=== PATIENT | female | born 1990 | race Two or more races ===

== ENCOUNTER 2024-03-16 21:55 | Inpatient (IN) | payer MEDICAID, OTHER ==
[~2024-03-16] VITALS: Ht 160 cm; Wt 78.7 kg
[2024-03-16 22:43] LABS: Basophils # (auto) 0 10 ^3/uL (0-0.2); Basophils % (auto) 0.4 % (0.0-2.0); Eosinophils # (auto) 0.1 10 ^3/uL (0-0.8); Eosinophils % (auto) 0.9 % (0.0-7.0); Hemoglobin 13.8 g/dL (12.2-16.2); Lymphocytes # (auto) 2.8 10 ^3/uL (0.4-5.4); Lymphocytes % (auto) 23.5 % (10.0-50.0); Mean Corpuscular Hemoglobin 30.3 pg (28.0-32.0); Mean Corpuscular Hgb Conc. 33.7 g/dL (32.0-36.0); Mean Corpuscular Volume 89.7 fL (80.0-100.0); Monocytes # (auto) 0.5 10 ^3/uL (0-1.3); Monocytes % (auto) 4.5 % (0.0-12.0); Neutrophils # (auto) 8.3 10 ^3/uL (1.6-8.6); Neutrophils % (auto) 70.7 % (37.0-80.0); Platelet Count (auto) 287 10^3/uL (140-450); Red Blood Cells 4.56 10^6/uL (4.0-5.20); White Blood Cell 11.7 10^3/uL (4.4-10.8)
--- NOTE | 2024-03-16 22:43 | ED.PDOC ---
History of Present Illness HPI Comments 33 y/o F, with a Hx of cholecystectomy, tonsillectomy, and EtOH use and a FMHx of DM and HTN, presents with c/o non-radiating, epigastric abdominal pain and distension, today. Patient states on unprovoked onset of persisting symptoms for the past 3 days. Patient comments on pain being pressure-like in quality and occurring whenever coughing or sneezing. Patient also informs that pain, at its worst, being a 10/10 and it, currently, being a mild form of discomfort. Patient denies having any nausea, vomiting, diarrhea, fever, chills, or other associated symptoms or modifiers at this time. 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 all MUSIC PUBLISHER Hx Family History Family History: Reviewed,noncontributory to illness, No family hx of Cancer, No family hx of Heart owen, No family hx ofKidney owen, No family hx of Liver owen, No family hx of Lung owen, No family hx of Stroke, Family hx of DM, Family hx of HTN Social History Smoker: Non-Smoker Alcohol: Occasionally Drugs: Denies Drug Use Lives In: Home Constitutional: denies: chills, diaphoresis, fatigue, fever, malaise, sweats, weakness, others EENTM: denies: blurred vision, double vision, ear bleeding, ear discharge, ear drainage, ear pain, ear ringing, eye pain, eye redness, hearing loss, mouth pain, mouth swelling, nasal discharge, nose bleeding, nose congestion, nose pain, photophobia, tearing, throat pain, throat swelling, voice changes, others Respiratory: denies: cough, hemoptysis, orthopnea, SOB at rest, shortness of breath, SOB with excertion, stridor, wheezing, others Cardiovascular: denies: chest pain, dizzy spells, diaphoresis, Dyspnea on exertion, edema, irregular heart beat, left arm pain, lightheadedness, palpitations, PND, syncope, others Gastrointestinal: reports: abdomen distended, abdominal pain; denies: blood streaked bowels, constipated, diarrhea, dysphagia, difficulty swallowing, hematemesis, melena, nausea, poor appetite, poor fluid intake, rectal bleeding, rectal pain, vomiting, others Genitourinary: denies: abnormal vagina bleeding, burning, dyspareunia, dysuria, flank pain, frequency, hematuria, incontinence, pain, , vagina discharge, urgency, others Neurological: denies: dizziness, fainting, headache, left sided numbness, left sided weakness, numbness, paresthesia, pre-existing deficit, right sided numbness, right sided weakness, seizure, speech problems, tingling, tremors, weakness, others Musculoskeletal: denies: back pain, gout, joint pain, joint swelling, muscle pain, muscle stiffness, neck pain, others Integumetry: denies: bruises, change in color, change in hair/nails, dryness, laceration, lesions, lumps, rash, wounds, others Allergic/Immunocompromised: denies: Difficulty Healing, Frequent Infections, Hives, Itching, others Hematologic/Lymphatic: denies: anemia, blood clots, easy bleeding, easy bruising, swollen glands, others Endocrine: denies: excessive hunger, excessive sweating, excessive thirst, excessive urination, flushing, intolerance to cold, intolerance to heat, unexplained weight gain, unexplained weight loss, others Psychiatric: denies: anxiety, bipolar disorder, depression, hopeless, panic disorder, schizophrenia, sleepless, suicidal, others All Other Systems: Reviewed and Negative Physical Exam General Appearance: Moderate Distress HEENT: Normal ENT Inspection, Pharynx Normal, TMs Normal Neck: Full Range of Motion, Non-Tender, Normal, Normal Inspection Respiratory: Chest Non-Tender, Lungs Clear, No Accessory Muscle Use, No Respiratory Distress, Normal Breath Sounds Cardiovascular: No Edema, No JVD, No Murmur, No Gallop, Normal Peripheral Pulses, Regular Rate/Rhythm Breast Exam: Deferred Gastrointestinal: Epigastric, No Organomegaly, No Pulsatile Mass, Normal Bowel Sounds, Soft, Tenderness Genitalia: Deferred Pelvic: Deferred Rectal: Deferred Extremities: No calf tenderness, Normal capillary refill, Normal inspection, Normal range of motion, Non-tender, No pedal edema Musculoskeletal : Apperance: Normal Neurologic: Alert, chemical blender II-XII nml as Tested, No Motor Deficits, Normal Affect, Normal Mood, No Sensory Deficits Cerebellar Function: Normal Reflexes: Normal Skin: Dry, Normal Color, Warm Lymphatic: No Adenopathy Was a procedure done? Was a procedure done?: No Differential Dx Considerations may include: gastritis, gastroenteritis, PUD, GERD, , musculoskeletal pain, acute abdomen X-Ray, Labs, Meds, VS Vital Signs Date Time Temp Pulse Resp B/P (MAP) Pulse Ox O2 Delivery O2 Flow Rate FiO2 03/16/24 22:17 98.7 88 18 121/76 (91) 99 Lab Test 03/16/24 22:30 03/16/24 22:17 Range/Units White Blood Count 11.7 H 4.4-10.8 10^3/uL Red Blood Count 4.56 4.0-5.20 10^6/uL Hemoglobin 13.8 12.2-16.2 g/dL Hematocrit 41.0 36.0-46.0 % Mean Corpuscular Volume 89.7 80.0-100.0 fL Mean Corpuscular Hemoglobin 30.3 28.0-32.0 pg Mean Corpuscular Hemoglobin Concent 33.7 32.0-36.0 g/dL Red Cell Distribution Width 13.0 11.8-14.3 % Platelet Count 287 140-450 10^3/uL Mean Platelet Volume 8.6 6.9-10.8 fL Neutrophils (%) (Auto) 70.7 37.0-80.0 % Lymphocytes (%) (Auto) 23.5 10.0-50.0 % Monocytes (%) (Auto) 4.5 0.0-12.0 % Eosinophils (%) (Auto) 0.9 0.0-7.0 % Basophils (%) (Auto) 0.4 0.0-2.0 % Neutrophils # (Auto) 8.3 1.6-8.6 10 ^3/uL Lymphocytes # (Auto) 2.8 0.4-5.4 10 ^3/uL Monocytes # (Auto) 0.5 0-1.3 10 ^3/uL Eosinophils # (Auto) 0.1 0-0.8 10 ^3/uL Basophils # (Auto) 0 0-0.2 10 ^3/uL Nucleated Red Blood Cells 0.0 % Sodium Level 139 136-145 mmol/L Potassium Level 3.8 3.5-5.1 mmol/L Chloride Level 104 98-107 mmol/L Carbon Dioxide Level 28 20-31 mmol/L Anion Gap 7 5-15 Blood Urea Nitrogen 8 L 9-23 mg/dL Creatinine 0.79 0.550-1.02 mg/dL Glomerular Filtration Rate Calc 101 >90 mL/min BUN/Creatinine Ratio 10.1 10.0-20.0 Serum Glucose 112 H 74-106 mg/dL Calcium Level 10.3 8.7-10.4 mg/dL Total Bilirubin 0.4 0.2-1.0 mg/dL Aspartate Amino Transferase (AST) 49 H 13-40 U/L Alanine Aminotransferase (ALT) 96 H 7-40 U/L Alkaline Phosphatase 176 H 46-116 U/L Total Protein 7.1 5.7-8.2 g/dL Albumin 4.5 3.2-4.8 g/dL Urine Color Light-yellow Yellow Urine Clarity Clear Clear Urine pH 6.0 5.0-9.0 Urine Specific Page 1.012 1.001-1.035 Urine Protein Negative Negative Urine Ketones Negative Negative Urine Blood 1+ H Negative /uL Urine Nitrite Negative Negative Urine Bilirubin Negative Negative Urine Urobilinogen Normal Negative mg/dL Urine Leukocyte Esterase Negative Negative /uL Urine RBC 6 0 - 4 /hpf Urine WBC <1 0 - 5 /hpf Urine Squamous Epithelial Cells Few <5 /hpf Urine Bacteria None seen None Seen /hpf Urine Glucose Normal Normal mg/dL PROCEDURE(s): ABPL - CT AB PEL WO CON-NO ORAL OR IV IMPRESSION: 1. Scattered fat stranding is seen in the right upper quadrant which may reflect mild focal infectious / inflammatory process. No abscess identified. 2. 1 mm calculi in the lower pole of the left kidney without hydronephrosis. 3. Otherwise, no abnormal findings identified. The CBC shows an elevated white blood cell count of 11.7 The rest of the CBC is within normal limits The chemistry panel is within normal limits The urine test is negative for infection The patient continues to have abdominal pain Images Reviewed?: Images reviewed and evaluated by me Time of 1ST Reevaluation: 00:00 Reevaluation 1ST: Unchanged Patient Education/Counseling: Diagnosis, Treatment, Prognosis Family Education/Counseling: No Family Present Departure 1 Departure Time of Disposition: 00:06 Impression: Primary Impression: Abdominal pain of unknown etiology Disposition: ADMITTED INPATIENT Condition: Fair e-Prescriptions Hydrocodone-Acetaminophen (Hydrocodone Bitartrate/AC 5-325 mg) 1 Tab Tab 1 TAB PO Q8HP PRN for 5 Days, #15 TAB Prov: REYNA APONTE MD 03/17/24 Critical Care Note Critical Care Time?: No Stability Stability form required: Yes Unstable for transfer: ED Physician Assesment (Clinical assesment) Heart Score Heart Score: Heart Score Response (Comments) Value History N/A 0 EKG N/A 0 Age N/A 0 Risk Factors N/A 0 Troponin N/A 0 Total 0 I personally scribed for REYNA APONTE MD ([email or web address]) on 03/16/24 at 22:43. Electronically submitted by Kit Tapia ([email or web address]). I personally scribed for REYNA APONTE MD ([email or web address]) on 03/16/24 at 23:50. Electronically submitted by Kit Tapia ([email or web address]). REYNA APONTE MD Mar 16, 2024 22:43
[2024-03-16 23:01] LABS: Alanine Aminotransferase 96 U/L (7-40); Albumin 4.5 g/dL (3.2-4.8); Alkaline Phosphatase 176 U/L (46-116); Anion Gap 7 (5-15); Aspartate Aminotransferase 49 U/L (13-40); BUN/Creatinine Ratio 10.1 (10.0-20.0); Bilirubin, Total 0.4 mg/dL (0.2-1.0); Blood Urea Nitrogen 8 mg/dL (9-23); Calcium 10.3 mg/dL (8.7-10.4); Carbon Dioxide 28 mmol/L (20-31); Chloride 104 mmol/L (98-107); Glucose 112 mg/dL (74-106); Potassium 3.8 mmol/L (3.5-5.1); Sodium 139 mmol/L (136-145); Total Protein 7.1 g/dL (5.7-8.2)
[2024-03-16 23:04] LABS: Urine Bacteria None Seen /hpf (None Seen)
[2024-03-16 23:09] LABS: Urine Blood 1+ /uL (Negative); Urine Clarity Clear (Clear); Urine Color Light-Yellow (Yellow); Urine Protein, UAD Negative (Negative); Urine Specific Gravity 1.012 (1.001-1.035); Urine Urobilinogen Normal (Negative); Urine WBC <1 /hpf (0 - 5)
--- NOTE | 2024-03-16 23:34 | DVH ---
Exam: CT CT AB PEL WO CON-NO ORAL OR IV History: pain Comparison Study: None Technique: Multidetector spiral CT of the abdomen was performed from lung bases to pubic symphysis. Imaging was performed without IV contrast. Axial, coronal and sagittal multiplanar reformats were ob tained from the axial data set by the technologist. Radiation Dose : 1. Abdomen/Pelvis: CTDIvol 8.7 mGy, DLP 516 mGy*cm. Findings: Evaluation of solid organs is limited due to lack of intravenous contrast use. Lung Bases: No acute or significant lung base finding. Normal heart size. No pleural or pericardial effusion. Liver: The liver is normal in size. No focal lesions. Gallbladder and Biliary Tree: Gallbladder is surgically absent. Spleen: Unremarkable Pancreas: The pancreas is grossly normal in appearance. Adrenal Glands: Unremarkable Kidneys: 1 mm calculi in the lower pole of the left kidney without hydronephrosis. Unremarkable right kidney. Bladder: Grossly unremarkable for degree of distention. Bowel: The stomach is grossly normal in appearance. Small bowel and colon are normal in caliber and d istribution. The appendix is not visualized; however, no secondary findings of acute appendicitis id entified. Scattered fat stranding is seen in the right upper quadrant which may reflect mild focal infectious / inflammatory process. Ascites: Absent Lymphadenopathy: No mesenteric, retroperitoneal or periportal lymphadenopathy. Abdominal Wall and Mesentery: Unremarkable. Vasculature: The visualized abdominal aorta is normal in size and caliber. Evaluation of abdominal a nd pelvic vessels is limited due to lack of intravenous contrast. Pelvic Organs: IUD in place Musculoskeletal: No aggressive focal bony lesions, acute fractures or dislocation. IMPRESSION: 1. Scattered fat stranding is seen in the right upper quadrant which may reflect mild focal infectiou s / inflammatory process. No abscess identified. 2. 1 mm calculi in the lower pole of the left kidney without hydronephrosis. 3. Otherwise, no abnormal findings identified. Radiation optimization: All CT scans at this facility use at least one of these dose optimization brice hniques: automated exposure control mA and/or kV adjustment per patient size (includes targeted exam s where dose is matched to clinical indication) or iterative reconstruction.
[2024-03-17] MEDS ORDERED: HYDR-4902 PO (00:02)
[2024-03-17] MEDS ORDERED: NITROGLYCERIN 0.4 MG SL TAB SL PRN (00:15)
[2024-03-17] MEDS ORDERED: MORPHINE SULFATE INJ 2 MG/ml SYRG IV PRN ×2 (00:15→22:30)
[2024-03-17] MEDS ORDERED: ONDANSETRON HCL 4 MG/2 ML VIAL IV PRN (00:15)
[2024-03-17 00:41] LABS: Lipase 51 U/L (12-53)
--- NOTE | 2024-03-17 00:45 | DVHHPRES ---
History of Present Illness Resident Creating Document: RAVIN ELLIS RESIDENT History of Present Illness Patient is 33 years old female with history of cholecystectomy, tonsillectomy came with a complaint of abdominal pain. As per patient she started having abdominal pain around the epigastric region 3 days before, gradual in nature, crampy sharp or stabbing pain, initially it was 8/10, now it is 5/10, radiating to the right lower abdomen, aggravated with lying down. Denied any fever, nausea/vomiting, constipation or diarrhea, dysuria urgency, acute chest pain no shortness a breath, fever, dysarthria, acute joint pain or swelling or sick contact. Initial lab workup revealed leukocytosis WBC 11.7, transaminitis AST 49, ALT 96, alkaline phosphatase 176. Urinalysis negative for UTI. CT Abdominal pelvis revealed-Scattered fat stranding is seen in the right upper quadrant which may reflect mild focal infectious / inflammatory process. No abscess identified. 1 mm calculi in the lower pole of the left kidney without hydronephrosis. Past Medical History none Past Surgical History Cholecystectomy, tonsillectomy Family History Mom, hypertension and diabetes, dad none Past Social History Lives with the and kids, occasional alcoholic, denies smoking or drug abuse Review of Systems Review of Systems Allergy- NKDA Patient was seen today at the bedside. Patient Cardiovascular- deny acute chest pain or shortness of breath or cough or palpitation Respiratory- denies cough or short of breath or wheezing Gastrointestinal- denies any rectal bleeding, nausea or vomiting Musculoskeletal-denies acute joint swelling or tenderness or redness Neurological- denies acute dysarthria, dysphagia, change in vision Psychiatry- denies depression or SI or HI Skin- denies acute rash or purpura Allergies: Coded Allergies: NO KNOWN ALLERGIES (Unverified , 03/16/24) Medications Current Medications Medications Dose Ordered Sig/Lai Route Start Time Stop Time Status Last Admin Dose Admin Sodium Chloride 10 ml Q8HR IV 03/17/24 06:00 Ondansetron HCl 4 mg Q4HP PRN IV 03/17/24 00:15 Acetaminophen 650 mg Q6HP PRN PO 03/17/24 00:15 Nitroglycerin 0.4 mg Q5MINP PRN SL 03/17/24 00:15 Morphine Sulfate 2 mg Q30M PRN IV 03/17/24 00:15 Exam Vital Signs Vital Signs Date Time Temp Pulse Resp B/P (MAP) Pulse Ox O2 Delivery O2 Flow Rate FiO2 03/16/24 22:17 98.7 88 18 121/76 (91) 99 Exam General examination- HEENT- PEERLA, no acute nasal discharge Cardiovascular- S1-S2 audible, rate and rhythm regular, no murmur Respiratory- CTAB, no wheeze or rhonchi Gastrointestinal-diffuse abdominal tenderness++, bowel sound+. Nondistended Musculoskeletal-no acute joint swelling or tenderness or redness# Lower extremity- no leg edema Neurological- cranial nerves intact, no acute dysarthria or dysphagia Psychiatry- denies depression or SI or HI Skin- no acute rash or purpura Labs/Xrays Labs Test 03/16/24 22:30 03/16/24 22:17 Range/Units White Blood Count 11.7 H 4.4-10.8 10^3/uL Red Blood Count 4.56 4.0-5.20 10^6/uL Hemoglobin 13.8 12.2-16.2 g/dL Hematocrit 41.0 36.0-46.0 % Mean Corpuscular Volume 89.7 80.0-100.0 fL Mean Corpuscular Hemoglobin 30.3 28.0-32.0 pg Mean Corpuscular Hemoglobin Concent 33.7 32.0-36.0 g/dL Red Cell Distribution Width 13.0 11.8-14.3 % Platelet Count 287 140-450 10^3/uL Mean Platelet Volume 8.6 6.9-10.8 fL Neutrophils (%) (Auto) 70.7 37.0-80.0 % Lymphocytes (%) (Auto) 23.5 10.0-50.0 % Monocytes (%) (Auto) 4.5 0.0-12.0 % Eosinophils (%) (Auto) 0.9 0.0-7.0 % Basophils (%) (Auto) 0.4 0.0-2.0 % Neutrophils # (Auto) 8.3 1.6-8.6 10 ^3/uL Lymphocytes # (Auto) 2.8 0.4-5.4 10 ^3/uL Monocytes # (Auto) 0.5 0-1.3 10 ^3/uL Eosinophils # (Auto) 0.1 0-0.8 10 ^3/uL Basophils # (Auto) 0 0-0.2 10 ^3/uL Nucleated Red Blood Cells 0.0 % Sodium Level 139 136-145 mmol/L Potassium Level 3.8 3.5-5.1 mmol/L Chloride Level 104 98-107 mmol/L Carbon Dioxide Level 28 20-31 mmol/L Anion Gap 7 5-15 Blood Urea Nitrogen 8 L 9-23 mg/dL Creatinine 0.79 0.550-1.02 mg/dL Glomerular Filtration Rate Calc 101 >90 mL/min BUN/Creatinine Ratio 10.1 10.0-20.0 Serum Glucose 112 H 74-106 mg/dL Calcium Level 10.3 8.7-10.4 mg/dL Total Bilirubin 0.4 0.2-1.0 mg/dL Aspartate Amino Transferase (AST) 49 H 13-40 U/L Alanine Aminotransferase (ALT) 96 H 7-40 U/L Alkaline Phosphatase 176 H 46-116 U/L Total Protein 7.1 5.7-8.2 g/dL Albumin 4.5 3.2-4.8 g/dL Urine Color Light-yellow Yellow Urine Clarity Clear Clear Urine pH 6.0 5.0-9.0 Urine Specific [place] 1.012 1.001-1.035 Urine Protein Negative Negative Urine Ketones Negative Negative Urine Blood 1+ H Negative /uL Urine Nitrite Negative Negative Urine Bilirubin Negative Negative Urine Urobilinogen Normal Negative mg/dL Urine Leukocyte Esterase Negative Negative /uL Urine RBC 6 0 - 4 /hpf Urine WBC <1 0 - 5 /hpf Urine Squamous Epithelial Cells Few <5 /hpf Urine Bacteria None seen None Seen /hpf Urine Glucose Normal Normal mg/dL Assessment/Plan Assessment/Plan # acute abdominal pain likely due to pancreatitis/gastritis - CT ABDOMEN REVEALED- Scattered fat stranding is seen in the right upper quadrant which may reflect mild focal infectious / inflammatory process. No abscess identified. 1 mm calculi in the lower pole of the left kidney without hydronephrosis. -lipase 51 -continue pain medication as scribed -NPO till further order -continue D5NS 100 mL/hour -famotidine 20 mg IV b.i.d. # suspected pancreatitis -- CT abdomen revealed- Scattered fat stranding is seen in the right upper quadrant which may reflect mild focal infectious / inflammatory process. No abscess identified. 1 mm calculi in the lower pole of the left kidney without hydronephrosis. -ultrasound of the upper abdomen revealed hepatic steatosis --lipase 51 -continue pain medication as scribed -NPO till further order -continue D5NS 100 mL/hour -famotidine 20 mg IV b.i.d. -ordered OBG and PROFESSIONAL [employer]ER consult for further evaluation and care # transaminitis -AST 49, ALT 96, alkaline phosphatase 176. -monitor liver function tests #1 mm calculi in the lower pole of the left kidney without hydronephrosis. -CT scan finding- 1 mm calculi in the lower pole of the left kidney without hydronephrosis. -asymptomatic # obesity, BMI 29.3 -patient is counseled about the healthy diet, weight reduction, physical activity # history of cholecystectomy # history of tonsillectomy # UDS -negative Goals of care/advance care planning; FULL CODE; discussed with the patient >15 minutes PUD prophylaxis: Famotidine DVT prophylaxis: Patient ambulating Plan discussed with Dr. Ellis, nursing staff, patient Total time spent on patient evaluation, chart review, assessment and plan, discussion discussion >30 minutes Plan discussed with: Patient Plan discussed with: Patient, Spouse, Other (RN) My Orders Orders - RAVIN ELLIS RESIDENT Procedure Category Date Status Time Admit ADMIT 03/17/24 Transmitted 00:15 Code Status CODE 03/17/24 Transmitted 00:15 Sodium Chloride Lock PHA 03/17/24 In Process (Saline Lock Ns) 06:00 Ondansetron Hcl PHA 03/17/24 In Process (Zofran) 00:15 Acetaminophen Tablet PHA 03/17/24 In Process (Tylenol Tablet) 00:15 Nitroglycerin PHA 03/17/24 In Process Sublingual (Ntrostat 00:15 Morphine Sulfate PHA 03/17/24 In Process Injection 00:15 Oxygen By Nasal RT 03/17/24 Transmitted Cannula 00:15 Stat Ekg For Chest PATTI 03/17/24 In Process Pain 00:15 Notify Of Changes [facility] 03/17/24 In Process From Base 00:15 Pe Teacher For PATTI 03/17/24 In Process 24 Hours 00:15 Emergency Dysrhythmia [facility] 03/17/24 In Process Protocol 00:15 Rhythm Strips Once [facility] 03/17/24 In Process Every Shift 00:15 Lipase LAB 03/17/24 In Process 00:17 Drug Screen LAB 03/17/24 In Process 00:17 Blood Alcohol LAB 03/17/24 In Process 00:17 Beta Hcg, Quantitative LAB 03/17/24 In Process 00:20 Date of Service: Mar 17, 2024 Billing Provider: SHANELLE ELLIS MD Common Visit Codes: 53611-[id number] INP/OBS CARE (HIGH) Secondary Visit Codes: [id number] CARE PLAN 30 MINUTES RAVIN ELLIS RESIDENT Mar 17, 2024 00:45 SHANELLE ELLIS MD Mar 17, 2024 19:10
[2024-03-17] MEDS: SODIUM CHLORIDE 0.9% 500 ML IVB ONE (00:58)
[2024-03-17] MEDS: ONDANSETRON HCL 4 MG/2 ML VIAL IV ONE (01:03)
[2024-03-17] MEDS: MORPHINE SULFATE 4 MG/ML SYR/VIAL IV ONE (01:04)
[2024-03-17 01:58] LABS: Amphetamine Screen, Urine Neg (NEGATIVE); Benzodiazephine Screen, Urine Neg (NEGATIVE)
[2024-03-17 01:59] LABS: Barbiturate Scree,Urine Neg (NEGATIVE); Cannabinoid Screen, Urine Neg (NEGATIVE); Cocaine Screen, Urine Neg (NEGATIVE); Opiate Scree,Urine Neg (NEGATIVE); Phencyclidine Screen, Urine Neg (NEGATIVE)
[2024-03-17 01:59] LABS: Blood Alcohol < 3.0 mg/dL (<10)
[2024-03-17] MEDS: FAMOTIDINE (10MG/ML) 2ML VL IV ONE (02:39)
[2024-03-17] MEDS: D5W/SOD CHLO 0.9% 1,000 ML IV ONE (02:47)
[2024-03-17] MEDS: ACETAMINOPHEN 325 MG TAB PO PRN (03:32)
--- NOTE | 2024-03-17 03:57 | DVH ---
INDICATION: ABDOMINAL PAIN TECHNIQUE: Multiple real-time sonographic images of the abdomen were obtained. COMPARISON: CT dated 03-16-24 FINDINGS: The liver is heterogenous in echogenicity. The liver measures 16cm. No intrahepatic biliar y ductal dilatation is noted. Gallbladder surigcally removed . The common duct measures 0.7 cm and is unremarkable. No pericholec ystic fluid is noted. The right kidney measures 10cm. No hydronephrosis. The pancreas is not well visualized due to obscuration from bowel gas. The visualized portions of the IVC and aorta are grossly unremarkable. IMPRESSION: Hepatic steatosis
[2024-03-17 04:06] LABS: Basophils # (auto) 0 10 ^3/uL (0-0.2); Basophils % (auto) 0.2 % (0.0-2.0); Eosinophils # (auto) 0.1 10 ^3/uL (0-0.8); Eosinophils % (auto) 0.9 % (0.0-7.0); Hemoglobin 12.8 g/dL (12.2-16.2); Lymphocytes # (auto) 2.3 10 ^3/uL (0.4-5.4); Lymphocytes % (auto) 21.2 % (10.0-50.0); Mean Corpuscular Hemoglobin 30.9 pg (28.0-32.0); Mean Corpuscular Hgb Conc. 34.7 g/dL (32.0-36.0); Mean Corpuscular Volume 89.1 fL (80.0-100.0); Monocytes # (auto) 0.5 10 ^3/uL (0-1.3); Monocytes % (auto) 4.9 % (0.0-12.0); Neutrophils # (auto) 7.8 10 ^3/uL (1.6-8.6); Neutrophils % (auto) 72.8 % (37.0-80.0); Platelet Count (auto) 257 10^3/uL (140-450); Red Blood Cells 4.15 10^6/uL (4.0-5.20); Red Cell Distribution Width 12.6 % (11.8-14.3); White Blood Cell 10.7 10^3/uL (4.4-10.8)
[2024-03-17 04:20] LABS: Alanine Aminotransferase 82 U/L (7-40); Alkaline Phosphatase 155 U/L (46-116); Anion Gap 7 (5-15); Aspartate Aminotransferase 34 U/L (13-40); BUN/Creatinine Ratio 12.3 (10.0-20.0); Bilirubin, Total 0.5 mg/dL (0.2-1.0); Blood Urea Nitrogen 9 mg/dL (9-23); Calcium 9.3 mg/dL (8.7-10.4); Carbon Dioxide 25 mmol/L (20-31); Chloride 107 mmol/L (98-107); Glucose 119 mg/dL (74-106); Potassium 3.8 mmol/L (3.5-5.1); Sodium 139 mmol/L (136-145); Total Protein 6.4 g/dL (5.7-8.2)
[2024-03-17] MEDS: LACTATED RINGER'S 1,000 ML IV SCH (05:37)
[2024-03-17] MEDS: SODIUM CHLOR 0.9% PF (SALINE LOCK) 10ML VIAL/SYR IV SCH (05:38)
[2024-03-17] MEDS: cefTRIAXone 1GM/50ML D5W 50 ML IV ONE (07:15)
[2024-03-17] MEDS: DOXYCYCLINE 100MG/250ML 250 ML IV ONE (07:15)
--- NOTE | 2024-03-17 08:07 | DVH ---
INDICATION: Abdominal pain renal stone to rule out. TECHNIQUE: Multiple real-time sonographic images of the kidneys and urinary bladder were obtained. COMPARISON: CT scan of the abdomen pelvis performed on 03/17/2024. FINDINGS: The right kidney measures 9.3 cm in length. The right renal echotexture, contour and cortical thickn ess are within normal limits. No hydronephrosis. Nonobstructing stone in the lower pole measuring 4 mm. The left kidney measures 11.9 cm in length. The left renal echotexture, contour, and cortical thickne ss are within normal limits. No hydronephrosis . Nonobstructing stone in the lower pole measuring 5 mm. No echogenic intraluminal masses are seen in the bladder. No urinary bladder wall abnormality. Bilat eral ureteral jets are visualized Prevoid residual measures 147 cc. IMPRESSION: 1. Bilateral nonobstructing nephrolithiasis measuring 4 mm in the lower pole of the right kidney and 5 mm in the lower pole of the left kidney.
[2024-03-17] MEDS ORDERED: ERGOCALCIFEROL 50,000 UNIT(1.25MG) CAP PO SCH (08:30)
[2024-03-17 09:00] VITALS: BP 97/62; PULSE 71; TEMP 98.7; O2SAT 95
[2024-03-17] MEDS ORDERED: cefTRIAXone 1GM/50ML D5W 50 ML IV SCH (09:00)
[2024-03-17 09:09] LABS: Hepatitis B Surface Antigen Negative (Negative)
[2024-03-17 09:31] LABS: Hepatitis A Ab IgM Negative; Hepatitis B Core IgM Negative; Hepatitis C Antibody Negative (Negative)
[2024-03-17] MEDS: ERGOCALCIFEROL 50,000 UNIT(1.25MG) CAP PO SCH (09:33)
[2024-03-17] MEDS: PANTOPRAZOLE 40 MG/10 ML VIAL INJ IV SCH (09:35)
--- NOTE | 2024-03-17 10:07 | DVHINCON2 ---
Date of service: Mar 17, 2024 Reason for Consultation Abdominal Pain x 3days History of Present Illness HPI 38y admitted with acute abdominal pain x 3 days. Pain in epigastrium, radiates to back. No N/V , fever or diarrhea. Endorses bloating. Hx of Fatty liver and prior Cholecystectomy x > 10 yr ago. Has MIRENA IUD in place, with secondary amenorrhea Monogamous for many years, no PMH of STI or Abnormal PAP smear Denies any pelvic pain, vaginal discharge, or AUB. Home Meds Active Scripts Hydrocodone-Acetaminophen (Hydrocodone Bitartrate/AC 5-325 mg) 1 Tab Tab, 1 TAB PO Q8HP PRN for 5 Days, #15 TAB Prov:REYNA APONTE MD 03/17/24 Past Medical History Cardiac: No pertinent Hx Pulmonary: No pertinent Hx Central Nervous System: No pertinent Hx GI: No pertinent Hx Hemotology/Oncology: No pertinent Hx Hepatobiliary: Cholelithiasis, Fatty liver Psychiatric: No pertinent Hx Musculoskeletal: No pertinent Hx Rheumotologic: No pertinent Hx Infectious Disease: No peritnent Hx ENT: No pertinent Hx Renal/: No pertinent Hx Endocrine: No pertinent Hx Dermatology: No pertinent Hx Past Surgical History: Cholecystectomy Family History: No pertinent Hx Patient Family History: Diabetes mellitus G8 MOTHER Hypertension G8 MOTHER Smoker: No Hx (Negative) Alocohol: None Drugs: None Lives with: With family Review of Systems Ears, Nose, & Throat: No symptom reported Eyes: No symptom reported Pulmonary/Respiratory: No symptom reported Cardiovascular: No symptom reported Gastrointestinal: Abdominal Pain Genitourinary: No symptom reported Musculoskeletal: No symptom reported Skin: No symptom reported Psychiatric: No symptom reported Endocrine: No symptom reported Hemotologic/Lymphatic: No symptom reported H&P Exam Vital Signs Vital Signs Date Time Temp Pulse Resp B/P (MAP) Pulse Ox O2 Delivery O2 Flow Rate FiO2 03/17/24 01:34 57 18 135/82 03/17/24 00:29 98.3 100 98.3 General Appeara: Other (Overweight) Head Exam: Normal inspection Neck Exam: Normal inspection Eye Exam: bilateral eye PERRL Nasal Exam: Normal inspection, Active bleeding Abdominal Exam: Normal bowel sounds, Soft, Other (Tender in epigastrium and RUQ, no rebound , + Guarding) Rectal Exam: Deferred 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 Imaging was performed without IV contrast. Axial, coronal and sagittal multiplanar reformats were obtained from the axial data set by the technologist. Radiation Dose : 1. Abdomen/Pelvis: CTDIvol 8.7 mGy, DLP 516 mGy*cm. Findings: Evaluation of solid organs is limited due to lack of intravenous contrast use. Lung Bases: No acute or significant lung base finding. Normal heart size. No pleural or pericardial effusion. Liver: The liver is normal in size. No focal lesions. Gallbladder and Biliary Tree: Gallbladder is surgically absent. Spleen: Unremarkable Pancreas: The pancreas is grossly normal in appearance. Adrenal Glands: Unremarkable Kidneys: 1 mm calculi in the lower pole of the left kidney without hydronephrosis. Unremarkable right kidney. Bladder: Grossly unremarkable for degree of distention. Bowel: The stomach is grossly normal in appearance. Small bowel and colon are normal in caliber and distribution. The appendix is not visualized; however, no secondary findings of acute appendicitis identified. Scattered fat stranding is seen in the right upper quadrant which may reflect mild focal infectious / inflammatory process. Ascites: Absent Lymphadenopathy: No mesenteric, retroperitoneal or periportal lymphadenopathy. Abdominal Wall and Mesentery: Unremarkable. Vasculature: The visualized abdominal aorta is normal in size and caliber. Evaluation of abdominal and pelvic vessels is limited due to lack of intravenous contrast. Pelvic Organs: IUD in place Musculoskeletal: No aggressive focal bony lesions, acute fractures or dislocation. IMPRESSION: 1. Scattered fat stranding is seen in the right upper quadrant which may reflect mild focal infectious / inflammatory process. No abscess identified. 2. 1 mm calculi in the lower pole of the left kidney without hydronephrosis. 3. Otherwise, no abnormal findings identified. Radiation optimization: All CT scans at this facility use at least one of these dose optimization techniques: automated exposure control mA and/or kV adjustment per patient size (includes targeted exams where dose is matched to clinical indication) or iterative reconstruction. ATED BY: JEREMIAH PARHAM MD DICTATED DATE/TIME: 03/16/242331 SIGNED BY: JEREMIAH PARHAM MD SIGNED DATE/TIME: 03/16/242331 PATIENT: DANIELA LUNDBERGACCT: [id number] UNIT: [id number] : 1990 LOC: OVERFLOW ROOM / BED: [address] [place] [address] AGE / SEX: 33 / F ADM STATUS: ADM IN SERVICE 09 ORDERING PHYSICIAN: RIA CHASE RESIDENT PROCEDURE(s): PELUS - PELVIC REASON: PELVIC PATHALOGY ? PID ORDER NUMBER(s): [id number], ACCESSION NUMBER(s): [id number] TRANSABDOMINAL AND ENDOVAGINAL PELVIC ULTRASOUND CLINICAL HISTORY: PELVIC PATHALOGY PID TECHNIQUE: Multiple transabdominal and endovaginal grayscale sonographic images of the pel vis were obtained. Comparison: [Comparison] FINDINGS: Uterus measures 8.1 x 4.6 x 4.0 cm. The uterine myometrium demonstrates fairly homogeneous echotexture. There is no evidence of a discrete mass or fibroid. Endometrial stripe measures 4 mm. An IUD is seen appropriately positioned in the uterine cavity. Right ovary measures 3.4 x 1.4 x 2.6 cm and the left measures 5.9 x 2.9 x 4.2 cm. There are several ple simple appearing left ovarian cysts measuring up to 3.1 cm. The right ovary appears within normal limits. There is no evidence of an adnexal mass. There is no free fluid in the cul-de-sac. IMPRESSION: 1. Several simple appearing left ovarian cysts measuring up to 3.1 cm. 2. An IUD is seen appropriately positioned within the uterine cavity. HS:Y ATED BY: NADEEM BABCOCK MD DICTATED DATE/TIME: 03/17/24 1059 Labs Test 03/17/24 08:35 03/17/24 08:07 03/17/24 03:35 03/16/24 22:30 Range/Units Amylase Level 54 30-118 U/L HIV (1&2) Antibody Negative Negative White Blood Count 10.7 4.4-10.8 10^3/uL Red Blood Count 4.15 4.0-5.20 10^6/uL Hemoglobin 12.8 12.2-16.2 g/dL Hematocrit 37.0 36.0-46.0 % Mean Corpuscular Volume 89.1 80.0-100.0 fL Mean Corpuscular Hemoglobin 30.9 28.0-32.0 pg Mean Corpuscular Hemoglobin Concent 34.7 32.0-36.0 g/dL Red Cell Distribution Width 12.6 11.8-14.3 % Platelet Count 257 140-450 10^3/uL Mean Platelet Volume 9.1 6.9-10.8 fL Neutrophils (%) (Auto) 72.8 37.0-80.0 % Lymphocytes (%) (Auto) 21.2 10.0-50.0 % Monocytes (%) (Auto) 4.9 0.0-12.0 % Eosinophils (%) (Auto) 0.9 0.0-7.0 % Basophils (%) (Auto) 0.2 0.0-2.0 % Neutrophils # (Auto) 7.8 1.6-8.6 10 ^3/uL Lymphocytes # (Auto) 2.3 0.4-5.4 10 ^3/uL Monocytes # (Auto) 0.5 0-1.3 10 ^3/uL Eosinophils # (Auto) 0.1 0-0.8 10 ^3/uL Basophils # (Auto) 0 0-0.2 10 ^3/uL Nucleated Red Blood Cells 0.0 % D-Dimer, Quantitative 0.46 0.0-0.49 mg/L FEU Sodium Level 139 136-145 mmol/L Potassium Level 3.8 3.5-5.1 mmol/L Chloride Level 107 98-107 mmol/L Carbon Dioxide Level 25 20-31 mmol/L Anion Gap 7 5-15 Blood Urea Nitrogen 9 9-23 mg/dL Creatinine 0.73 0.550-1.02 mg/dL Glomerular Filtration Rate Calc 111 >90 mL/min BUN/Creatinine Ratio 12.3 10.0-20.0 Serum Glucose 119 H 74-106 mg/dL Lactic Acid Level 0.7 0.4-2.0 mmol/L Calcium Level 9.3 8.7-10.4 mg/dL Total Bilirubin 0.5 0.2-1.0 mg/dL Aspartate Amino Transferase (AST) 34 13-40 U/L Alanine Aminotransferase (ALT) 82 H 7-40 U/L Alkaline Phosphatase 155 H 46-116 U/L Total Protein 6.4 5.7-8.2 g/dL Albumin 4.0 3.2-4.8 g/dL Vitamin D 25-Hydroxy 9.1 L 30.0-100 ng/mL Thyroid Stimulating Hormone (TSH) 5.02 H 0.55-4.78 uIU/mL Lipase 51 12-53 U/L Beta HCG, Quantitative < 0.0 L 1.5-4.2 mIU/mL Plasma/Serum Blood Alcohol < 3.0 <10 mg/dL Test 03/16/24 22:17 Range/Units Urine Color Light-yellow Yellow Urine Clarity Clear Clear Urine pH 6.0 5.0-9.0 Urine Specific [place] 1.012 1.001-1.035 Urine Protein Negative Negative Urine Ketones Negative Negative Urine Blood 1+ H Negative /uL Urine Nitrite Negative Negative Urine Bilirubin Negative Negative Urine Urobilinogen Normal Negative mg/dL Urine Leukocyte Esterase Negative Negative /uL Urine RBC 6 0 - 4 /hpf Urine WBC <1 0 - 5 /hpf Urine Squamous Epithelial Cells Few <5 /hpf Urine Bacteria None seen None Seen /hpf Urine Glucose Normal Normal mg/dL Urine Opiates Screen Neg NEGATIVE Urine Fentanyl Screen Neg NEGATIVE Urine Barbiturates Screen Neg NEGATIVE Urine Phencyclidine Screen Neg NEGATIVE Urine Amphetamines Screen Neg NEGATIVE Urine Benzodiazepines Screen Neg NEGATIVE Urine Cocaine Screen Neg NEGATIVE Urine Cannabinoids Screen Neg NEGATIVE Assessment/Plan Admitting Diagnosis: Acute epigastric abdominal pain, likely GI cause Benign follicular ovarian cysts (not clinically significant) Plan Recommend GI consult and UPPER GI study /Eval for possible endoscopy consider gastritis, PUD as cause for pain Pain is NOT of SOAKER origin Benign ovarian cyst not clinically significant and does not require follow up (asymptomatic) SOAKER will sign off Thank you for allowing us to participate in the care of this patient. Plan discussed with: Patient Date of Service: Mar 17, 2024 Billing Provider: MYNOR DIANA DO Common Visit Codes: CONSULT ONLY Consultation Codes: [id number] CONSULT <45MIN MYNOR DIANA DO Mar 17, 2024 10:07
--- NOTE | 2024-03-17 11:00 | DVH ---
TRANSABDOMINAL AND ENDOVAGINAL PELVIC ULTRASOUND CLINICAL HISTORY: PELVIC PATHALOGY PID TECHNIQUE: Multiple transabdominal and endovaginal grayscale sonographic images of the pelvis were obtained. Comparison: [Comparison] FINDINGS: Uterus measures 8.1 x 4.6 x 4.0 cm. The uterine myometrium demonstrates fairly homogeneous echotextur e. There is no evidence of a discrete mass or fibroid. Endometrial stripe measures 4 mm. An IUD is seen appropriately positioned in the uterine cavity. Right ovary measures 3.4 x 1.4 x 2.6 cm and the left measures 5.9 x 2.9 x 4.2 cm. There are several p le simple appearing left ovarian cysts measuring up to 3.1 cm. The right ovary appears within normal limits. There is no evidence of an adnexal mass. There is no free fluid in the cul-de-sac. IMPRESSION: 1. Several simple appearing left ovarian cysts measuring up to 3.1 cm. 2. An IUD is seen appropriately positioned within the uterine cavity. HS:Y
[2024-03-17 11:55] VITALS: BP 107/67; PULSE 69; RESP 17; TEMP 98.8; O2SAT 95
[2024-03-17 12:04] LABS: Urine Bacteria None Seen /hpf (None Seen)
[2024-03-17 12:35] LABS: Urine Blood TRACE /uL (Negative); Urine Clarity Clear (Clear); Urine Color Light-Yellow (Yellow); Urine Protein, UAD Negative (Negative); Urine Specific Gravity 1.008 (1.001-1.035); Urine Urobilinogen Normal (Negative); Urine WBC 2 /hpf (0 - 5); Urine pH 5.5 (5.0-9.0)
--- NOTE | 2024-03-17 12:56 | DVHPNRES ---
Progress Note Date Seen: Mar 17, 2024 Resident Creating Document: RIA CHASE RESIDENT Medical Necessity Reason Pt with a Central, PICC or Fol: No Subjective Review of Systems Simran Verdin is a 33 years old female with a no significant PMH presented to the ED with the chief complaints of abdominal per past 4 days prior admission. Patient reported abdominal pain is gradual onset, wearing crampy to stabbing, 8/10 intensity, mostly towards right upper quadrant and epigastrium, with no associating features. On my assessment patient denies nausea, vomiting, diarrhea, fever, sick contacts, recent travel, and other associated symptoms. Patient reported she is sexually active with male partner, on IUDs for contraception and also reported she frequently get guarding elevation versus infection for which she takes metronidazole. PMH: Denies PSH: Cholecystectomy, tonsillectomy Family history: Reviewed, noncontributory Social history: Lives with the . Occasional alcohol but denies smoking, and other drug abuse Allergies: No known allergies Patient seen and examined at the bedside. Patient reported improvement in her abdominal pain since admission. CT abdominal pelvis showed scattered fat stranding right upper quadrant likely infectious or inflammatory process, 1 mm calculi in left kidney without hydronephrosis. Liver ultrasound showed hepatic steatosis. Pelvic ultrasound showed several left ovarian cyst measuring up to 3.1 cm and properly placed IUD. Ordered STD panel. Patient reports: Feels better Objective vital signs Vital Sign Date Time Temp Pulse Resp B/P (MAP) Pulse Ox O2 Delivery O2 Flow Rate FiO2 03/17/24 11:55 98.8 69 17 107/67 (80) 95 98.8 Total Intake and Output 03/16/24 03/16/24 03/17/24 14:59 22:59 06:59 Intake Total 800 ml Balance 800 ml medications Current Medications Medications Dose Ordered Sig/Lai Route Start Time Stop Time Status Last Admin Dose Admin Sodium Chloride 10 ml Q8HR IV 03/17/24 06:00 03/17/24 05:38 10 ML Ondansetron HCl 4 mg Q4HP PRN IV 03/17/24 00:15 Acetaminophen 650 mg Q6HP PRN PO 03/17/24 00:15 03/17/24 03:32 650 MG Nitroglycerin 0.4 mg Q5MINP PRN SL 03/17/24 00:15 Morphine Sulfate 2 mg Q30M PRN IV 03/17/24 00:15 Pantoprazole Sodium 40 mg DAILY IV 03/17/24 10:00 03/17/24 09:35 40 MG Lactated Ringer's 1,000 ml @ 100 mls/hr Q10H IV 03/17/24 05:30 03/17/24 05:37 100 MLS/HR Doxycycline Hyclate 250 ml @ 125 mls/hr Q12H IV 03/17/24 19:15 Ceftriaxone Sodium 50 ml @ 100 mls/hr DAILY@09 IV 03/18/24 09:00 Ergocalciferol 50,000 unit Q7D PO 03/17/24 10:00 03/17/24 09:33 50,000 UNIT Examination Pt is lying on bed General Appearance: Alert, Oriented X3, Cooperative, Not in acute distress HEENT: Atraumatic, Mucous membranes moist/pink Respiratory: Clear to auscultation, Normal air movement, No added sounds Cardiovascular: Regular rate, Normal S1, Normal S2, No murmurs Abdominal: Epigastrium, right upper quadrant tenderness Active bowel sounds, Extremities: No edema, Normal pulses, No tenderness/swelling Skin: No Significant rash, except past surgical scars Neuro: Normal speech, sensorimotor deficits none Psych/Mental Status: Mental status NL, Mood NL Nurse was there as sharperone during examination laboratory and microbiology Laboratory Tests 03/17/24 03:35 Test 03/17/24 03:35 Range/Units Serum Glucose 119 H 74-106 mg/dL Labs and/or images reviewed: Labs reviewed by me, Image(s) reviewed by me Problem List/Assessment/Plan Problem List/Assessment/Plan # likely acute gastritis # Rule out hepatitis # Rule out pelvic inflammatory disease # mild transaminitis - CT abdominal pelvis showed scattered fat stranding right upper quadrant likely infectious or inflammatory process, - ordered STD panel and hepatitis panel - Liver ultrasound showed hepatic steatosis. - continue pain medication as scribed - NPO till further order - Protonix for now # Multiple left ovarian cysts - Pelvic ultrasound showed several left ovarian cyst measuring up to 3.1 cm and properly placed IUD. # Vit D deficiency - Repleting No VTE PPX Protonix NPO for now Goals of care discussed with the patient for more than 27 minutes: Full code status Case management discussed with Dr. De León, patient and nurse Plan discussed with: Patient My Orders My Orders Orders - SALVATORE,KHAJA RESIDENT Procedure Category Date Status Time Ergocalciferol PHA 03/17/24 In Process (Vitamin D 50,000 10:00 Pelvic US 03/17/24 Resulted 09:47 Pantoprazole PHA 03/17/24 Logged (Protonix) 13:00 Pantoprazole PHA 03/18/24 Logged (Protonix) 10:00 T3 Total LAB 03/17/24 Transmitted 12:54 Thyroxine (T4) LAB 03/17/24 Transmitted 12:54 Date of Service: Mar 17, 2024 Billing Provider: CIELO DE LEÓN MD Common Visit Codes: [id number] INP/OBS CARE(HIGH) Coding Comment Comment Attending Attestation I saw and evaluated the patient. I reviewed the residents note and agree with findings and plan as documented in the residents note except as documented below. RIA CHASE RESIDENT Mar 17, 2024 12:56 CIELO DE LEÓN MD Mar 17, 2024 21:41
[2024-03-17] MEDS: PANTOPRAZOLE 40 MG/10 ML VIAL INJ IV ONE (13:00)
[2024-03-17 14:41] VITALS: BP 96/57; PULSE 92; RESP 17; TEMP 98.7; O2SAT 95
[2024-03-17 20:00] VITALS: RESP 16
[2024-03-17] MEDS: DOXYCYCLINE 100MG/250ML 250 ML IV SCH (20:04)
[2024-03-17 21:00] VITALS: BP 99/62; PULSE 69; RESP 18; TEMP 97.8; O2SAT 100
[2024-03-18] VITALS (9 sets, daily range): BP systolic 88–121; BP diastolic 47–76; PULSE 55–81; RESP 13–20; TEMP 97.5–98.4; O2SAT 95–100
[2024-03-18 06:42] LABS: Alanine Aminotransferase 82 U/L (7-40); Albumin 3.7 g/dL (3.2-4.8); Alkaline Phosphatase 146 U/L (46-116); Anion Gap 7 (5-15); Aspartate Aminotransferase 47 U/L (13-40); BUN/Creatinine Ratio 9.1 (10.0-20.0); Bilirubin, Total 0.8 mg/dL (0.2-1.0); Blood Urea Nitrogen 6 mg/dL (9-23); Calcium 8.9 mg/dL (8.7-10.4); Carbon Dioxide 25 mmol/L (20-31); Chloride 108 mmol/L (98-107); Glucose 90 mg/dL (74-106); Potassium 3.9 mmol/L (3.5-5.1); Sodium 140 mmol/L (136-145)
[2024-03-18 06:43] LABS: Total Protein 5.9 g/dL (5.7-8.2)
[2024-03-18 07:06] LABS: RPR Non Reactive (Non Reactive)
[2024-03-18] MEDS: cefTRIAXone 1GM/50ML D5W 50 ML IV SCH (09:44)
[2024-03-18] MEDS: PANTOPRAZOLE 40 MG/10 ML VIAL INJ IV SCH (10:00)
[2024-03-18] MEDS ORDERED: MAALOX PLUS or MAALOX 30 ML GT PRN (16:45)
--- NOTE | 2024-03-18 17:18 | DVHPNRES ---
Progress Note Date Seen: Mar 18, 2024 Resident Creating Document: RIA CHASE RESIDENT Medical Necessity Reason Pt with a Central, PICC or Fol: No Subjective Review of Systems Simran Verdin is a 33 years old female with a no significant PMH presented to the ED with the chief complaints of abdominal per past 4 days prior admission. Patient seen and examined at the bedside. Patient reported improvement in her abdominal pain since admission. CT abdominal pelvis showed scattered fat stranding right upper quadrant likely infectious or inflammatory process, 1 mm calculi in left kidney without hydronephrosis. Liver ultrasound showed hepatic steatosis. Pelvic ultrasound showed several left ovarian cyst measuring up to 3.1 cm and properly placed IUD. Ordered STD panel.We are advancing diet from NPO to soft mechanical today, given Pepcid and Maalox, Monitor. Patient reports: Feels better Objective vital signs Vital Sign Date Time Temp Pulse Resp B/P (MAP) Pulse Ox O2 Delivery O2 Flow Rate FiO2 03/18/24 16:45 98.4 80 16 104/65 (78) 95 98.4 03/18/24 08:00 Room Air* 0 21 Total Intake and Output 03/17/24 03/17/24 03/18/24 15:00 23:00 07:00 Intake Total 650 ml 800 ml Output Total 600 ml Balance 50 ml 800 ml medications Current Medications Medications Dose Ordered Sig/Lai Route Start Time Stop Time Status Last Admin Dose Admin Sodium Chloride 10 ml Q8HR IV 03/17/24 06:00 03/18/24 13:04 10 ML Ondansetron HCl 4 mg Q4HP PRN IV 03/17/24 00:15 Acetaminophen 650 mg Q6HP PRN PO 03/17/24 00:15 03/17/24 15:03 650 MG Nitroglycerin 0.4 mg Q5MINP PRN SL 03/17/24 00:15 Morphine Sulfate 2 mg Q30M PRN IV 03/17/24 00:15 Lactated Ringer's 1,000 ml @ 100 mls/hr Q10H IV 03/17/24 05:30 03/18/24 12:50 100 MLS/HR Doxycycline Hyclate 250 ml @ 125 mls/hr Q12H IV 03/17/24 19:15 03/18/24 07:23 125 MLS/HR Ceftriaxone Sodium 50 ml @ 100 mls/hr DAILY@09 IV 03/18/24 09:00 03/18/24 09:44 100 MLS/HR Ergocalciferol 50,000 unit Q7D PO 03/17/24 10:00 03/17/24 09:33 50,000 UNIT Pantoprazole Sodium 40 mg DAILY IV 03/18/24 10:00 Morphine Sulfate 1 mg Q4HP PRN IV 03/17/24 22:30 Famotidine 40 mg Q12HR PO 03/18/24 22:00 UNV Famotidine 40 mg DAILY PO 03/19/24 10:00 UNV Al Hydrox/Mg Hydrox/Simethicone 15 ml Q8HP PRN GT 03/18/24 16:45 Examination Pt is lying on bed General Appearance: Alert, Oriented X3, Cooperative, Not in acute distress HEENT: Atraumatic, Mucous membranes moist/pink Respiratory: Clear to auscultation, Normal air movement, No added sounds Cardiovascular: Regular rate, Normal S1, Normal S2, No murmurs Abdominal: Epigastrium, right upper quadrant tenderness Active bowel sounds, Extremities: No edema, Normal pulses, No tenderness/swelling Skin: No Significant rash, except past surgical scars Neuro: Normal speech, sensorimotor deficits none Psych/Mental Status: Mental status NL, Mood NL Nurse was there as sharperone during examination laboratory and microbiology Laboratory Tests 03/18/24 05:51 03/17/24 03:35 Test 03/18/24 05:51 Range/Units Serum Glucose 90 74-106 mg/dL Labs and/or images reviewed: Labs reviewed by me, Image(s) reviewed by me Problem List/Assessment/Plan Problem List/Assessment/Plan # likely acute gastritis # Rule out hepatitis # Rule out pelvic inflammatory disease # mild transaminitis - CT abdominal pelvis showed scattered fat stranding right upper quadrant likely infectious or inflammatory process, - ordered STD panel and hepatitis panel - Liver ultrasound showed hepatic steatosis. - continue pain medication as scribed -soft mechanical diet - Protonix for now -given Pepcid and Maalox # Multiple left ovarian cysts - Pelvic ultrasound showed several left ovarian cyst measuring up to 3.1 cm and properly placed IUD. # Vit D deficiency - Repleting No VTE PPX Protonix NPO for now Goals of care discussed with the patient for more than 27 minutes: Full code status Case management discussed with Dr. De León, patient and nurse Plan discussed with: Patient My Orders My Orders Orders - RIA CHASE RESIDENT Procedure Category Date Status Time Mechanical Soft Diet DIET 03/18/24 Transmitted Dinner Famotidine Tablet PHA 03/18/24 Logged (Pepcid Tablet) 22:00 Famotidine Tablet PHA 03/19/24 Logged (Pepcid Tablet) 10:00 Alum & Mag PHA 03/18/24 In Process Hydrox-Simethicone 16:45 Date of Service: Mar 18, 2024 Billing Provider: CIELO DE LEÓN MD Common Visit Codes: [id number] INP/OBS CARE(HIGH) Coding Comment Comment \Attending Attestation I saw and evaluated the patient. I reviewed the residents note and agree with findings and plan as documented in the residents note except as documented below. RIA CHASE RESIDENT Mar 18, 2024 17:18 CIELO DE LEÓN MD Mar 18, 2024 21:29
[2024-03-18 18:06] LABS: Chlamydia Trachomatis, NAA Negative (Negative); Neisseria gonorrhoeae, NAA Negative (Negative)
[2024-03-18] MEDS: FAMOTIDINE 20 MG TAB PO SCH (21:24)
[2024-03-19 00:51] VITALS: BP 85/46; PULSE 105; RESP 14; TEMP 98.1; O2SAT 99
[2024-03-19 04:43] VITALS: BP 93/52; PULSE 70; RESP 13; TEMP 98.3; O2SAT 94
[2024-03-19 08:00] VITALS: O2SAT 100
[2024-03-19 09:00] VITALS: BP_SYST 122; BP_SYST 123; BP_DIAS 62; BP_DIAS 63; PULSE 88; RESP 16; RESP 18; TEMP 98.4; TEMP 98.9; O2SAT 92; O2SAT 97
[2024-03-19] MEDS ORDERED: ERGO1CAP23 PO (09:52)
[2024-03-19] MEDS ORDERED: CIPR500T4 PO (09:52)
[2024-03-19] MEDS ORDERED: GICOCKTAIL GT (09:52)
[2024-03-19] MEDS ORDERED: FAMO-12 PO (09:52)
[2024-03-19] MEDS ORDERED: ACET-1882 PO (09:52)
[2024-03-19] MEDS ORDERED: FAMOTIDINE 20 MG TAB PO SCH (10:00)
[2024-03-19 10:43] LABS: Basophils # (auto) 0 10 ^3/uL (0-0.2); Basophils % (auto) 0.2 % (0.0-2.0); Eosinophils # (auto) 0.1 10 ^3/uL (0-0.8); Eosinophils % (auto) 0.6 % (0.0-7.0); Hematocrit 39.3 % (36.0-46.0); Hemoglobin 13.2 g/dL (12.2-16.2); Lymphocytes # (auto) 1.6 10 ^3/uL (0.4-5.4); Mean Corpuscular Hemoglobin 30.2 pg (28.0-32.0); Mean Corpuscular Hgb Conc. 33.7 g/dL (32.0-36.0); Mean Corpuscular Volume 89.5 fL (80.0-100.0); Monocytes # (auto) 0.4 10 ^3/uL (0-1.3); Monocytes % (auto) 4.4 % (0.0-12.0); Neutrophils # (auto) 7.4 10 ^3/uL (1.6-8.6); Neutrophils % (auto) 77.8 % (37.0-80.0); Nucleated Red Blood Cells % 0.1 %; Platelet Count (auto) 261 10^3/uL (140-450); Red Blood Cells 4.38 10^6/uL (4.0-5.20); Red Cell Distribution Width 12.8 % (11.8-14.3); White Blood Cell 9.5 10^3/uL (4.4-10.8)
[2024-03-19 10:59] LABS: Alanine Aminotransferase 87 U/L (7-40); Albumin 3.9 g/dL (3.2-4.8); Alkaline Phosphatase 163 U/L (46-116); Anion Gap 7 (5-15); Aspartate Aminotransferase 42 U/L (13-40); BUN/Creatinine Ratio 6.6 (10.0-20.0); Bilirubin, Total 0.5 mg/dL (0.2-1.0); Blood Urea Nitrogen 5 mg/dL (9-23); Calcium 9.5 mg/dL (8.7-10.4); Carbon Dioxide 26 mmol/L (20-31); Chloride 109 mmol/L (98-107); Glucose 112 mg/dL (74-106); Potassium 3.9 mmol/L (3.5-5.1); Sodium 142 mmol/L (136-145); Total Protein 6.3 g/dL (5.7-8.2)
[2024-03-19 12:18] VITALS: BP 94/58; PULSE 62; RESP 16; TEMP 98.3; O2SAT 91
--- NOTE | 2024-03-19 12:28 | DVHDSRES ---
Discharge Summary Date of Admission Resident Creating Document: DEVYN CARR RESIDENT Mar 17, 2024 at 00:17 Date of Discharge: Mar 19, 2024 Labs/Diagnostic Data: Laboratory Results Test 03/19/24 10:21 03/17/24 10:46 03/17/24 08:35 03/17/24 08:07 White Blood Count 9.5 10^3/uL (4.4-10.8) Red Blood Count 4.38 10^6/uL (4.0-5.20) Hemoglobin 13.2 g/dL (12.2-16.2) Hematocrit 39.3 % (36.0-46.0) Mean Corpuscular Volume 89.5 fL (80.0-100.0) Mean Corpuscular Hemoglobin 30.2 pg (28.0-32.0) Mean Corpuscular Hemoglobin Concent 33.7 g/dL (32.0-36.0) Red Cell Distribution Width 12.8 % (11.8-14.3) Platelet Count 261 10^3/uL (140-450) Mean Platelet Volume 8.8 fL (6.9-10.8) Neutrophils (%) (Auto) 77.8 % (37.0-80.0) Lymphocytes (%) (Auto) 17.0 % (10.0-50.0) Monocytes (%) (Auto) 4.4 % (0.0-12.0) Eosinophils (%) (Auto) 0.6 % (0.0-7.0) Basophils (%) (Auto) 0.2 % (0.0-2.0) Neutrophils # (Auto) 7.4 10 ^3/uL (1.6-8.6) Lymphocytes # (Auto) 1.6 10 ^3/uL (0.4-5.4) Monocytes # (Auto) 0.4 10 ^3/uL (0-1.3) Eosinophils # (Auto) 0.1 10 ^3/uL (0-0.8) Basophils # (Auto) 0 10 ^3/uL (0-0.2) Nucleated Red Blood Cells 0.1 % Sodium Level 142 mmol/L (136-145) Potassium Level 3.9 mmol/L (3.5-5.1) Chloride Level 109 mmol/L (98-107) Carbon Dioxide Level 26 mmol/L (20-31) Anion Gap 7 (5-15) Blood Urea Nitrogen 5 mg/dL (9-23) Creatinine 0.76 mg/dL (0.550-1.02) Glomerular Filtration Rate Calc 105 mL/min (>90) BUN/Creatinine Ratio 6.6 (10.0-20.0) Serum Glucose 112 mg/dL (74-106) Calcium Level 9.5 mg/dL (8.7-10.4) Total Bilirubin 0.5 mg/dL (0.2-1.0) Aspartate Amino Transferase (AST) 42 U/L (13-40) Alanine Aminotransferase (ALT) 87 U/L (7-40) Alkaline Phosphatase 163 U/L (46-116) Total Protein 6.3 g/dL (5.7-8.2) Albumin 3.9 g/dL (3.2-4.8) Urine Color Light-yellow (Yellow) Urine Clarity Clear (Clear) Urine pH 5.5 (5.0-9.0) Urine Specific Byron 1.008 (1.001-1.035) Urine Protein Negative (Negative) Urine Ketones Negative (Negative) Urine Blood Trace /uL (Negative) Urine Nitrite Negative (Negative) Urine Bilirubin Negative (Negative) Urine Urobilinogen Normal mg/dL (Negative) Urine Leukocyte Esterase Negative /uL (Negative) Urine RBC 2 /hpf (0 - 4) Urine WBC 2 /hpf (0 - 5) Urine Squamous Epithelial Cells Few /hpf (<5) Urine Bacteria None seen /hpf (None Seen) Urine Glucose Normal mg/dL (Normal) Amylase Level 54 U/L (30-118) Thyroxine (T4) 8.7 ug/dL (4.5-12.0) Total Triiodothyronine (TT3) 1.46 ng/mL (0.60-1.81) Rapid Plasma Reagin Non reactive (Non Reactive) Hepatitis A IgM Antibody Negative Hepatitis B Surface Antigen Negative (Negative) Hepatitis B Core IgM Antibody Negative Hepatitis C Antibody Negative (Negative) HIV (1&2) Antibody Negative (Negative) Test 03/17/24 03:35 03/16/24 22:30 03/16/24 22:17 D-Dimer, Quantitative 0.46 mg/L FEU (0.0-0.49) Hemoglobin A1c 5.5 % A1C (<5.7) Lactic Acid Level 0.7 mmol/L (0.4-2.0) Vitamin B12 Level 274 pg/mL (211-911) Vitamin D 25-Hydroxy 9.1 ng/mL (30.0-100) Thyroid Stimulating Hormone (TSH) 5.02 uIU/mL (0.55-4.78) Lipase 51 U/L (12-53) Beta HCG, Quantitative < 0.0 mIU/mL (1.5-4.2) Plasma/Serum Blood Alcohol < 3.0 mg/dL (<10) Urine Opiates Screen Neg (NEGATIVE) Urine Fentanyl Screen Neg (NEGATIVE) Urine Barbiturates Screen Neg (NEGATIVE) Urine Phencyclidine Screen Neg (NEGATIVE) Urine Amphetamines Screen Neg (NEGATIVE) Urine Benzodiazepines Screen Neg (NEGATIVE) Urine Cocaine Screen Neg (NEGATIVE) Urine Cannabinoids Screen Neg (NEGATIVE) Chlamydia trachomatis (JOHN) Negative (Negative) Neisseria gonorrhoeae (JOHN) Negative (Negative) Other Laboratory Tests 03/19/24 10:21 Brief Hx & Hospital Course: Simran Verdin is a 33 years old female patient who presents to ED with chief complaint of epigastric and right upper quadrant colicky abdominal pain which started four days prior to her admission. Patient reports that there is no clear trigger (says that eating or not eating does not affect symptoms), has no alleviating symptoms, started after having barbecue house with family and friends, there is no sick contacts per patient, she said during the barbecue she only drank two beers. She also mentioned said currently since her progesterone IUD placement she barely has any periods. Denies fever, chills, palpitation, syncope, chest pain, dyspnea, nausea, vomiting, diarrhea, discharge, bleeding, dysuria, sick contacts, unintentional weight loss and motor or sensory deficits. Past medical history: Repeated episodes of vaginosis treated with suppository antibiotics, hepatic steatosis. Surgical history: IUD placement Family history: Noncontributory Social history: Lives in [place] with family, has a monogamous relationship with , has two offsprings. Denies current tobacco, alcohol and other drug abuse. Allergies: Denies Home medication: Denies Brief hospital course: Probable acute gastroenteritis, requiring on admission empiric IV antibiotic, IV fluids, and bowel rest. Patient completed CT abdomen and pelvis which shows scattered fat stranding in right upper quadrant likely infectious/inflammatory process and liver ultrasound which showed hepatic steatosis, pelvic ultrasound showed multiple left ovarian cysts. STD and acute hepatitis panel which was negative, evaluated by [facility] who ruled out pelvic inflammatory disease and suggested follow up as outpatient. Patient hemodynamically stable, asymptomatic, tolerating diet, in condition to be discharged home. Was granted under optimal medical therapy (indicated ciprofloxacin to complete five days of antibiotic course), gave her advice on healthy lifestyle habits (decrease alcohol and fatty food consumption), and follow-up as outpatient with PCP in [facility]. DIAGNOSIS #Probable acute gastroenteritis #Ruled out hepatitis #Ruled out pelvic inflammatory disease #Transaminitis # Multiple left ovarian cysts Goals of care discussed with the patient for over 18 minutes: Full code status Case management discussed with Dr. De León, patient and nurse. Physical examination Patient lying in bed, in no acute distress General: Lucid, afebrile, mucosae are moist Cardiovascular: Normal S1 and S2. No murmurs, gallops or rubs Respiratory: Normal ventilation mechanics. Clear lung sounds on auscultation Abdomen: Soft, nontender, no organomegaly, normal bowel sounds MSK/skin: Mobilizes 4 limbs. Skin is dry and warm Neurological: Oriented in 3 spheres. No motor no sensitive deficits. Pupils are isocoric and reactive Operations or Procedures Exam: CT CT AB PEL WO CON-NO ORAL OR IV History: pain Comparison Study: None Technique: Multidetector spiral CT of the abdomen was performed from lung bases to pubic symphysis. Imaging was performed without IV contrast. Axial, coronal and sagittal multiplanar reformats were obtained from the axial data set by the technologist. Radiation Dose : 1. Abdomen/Pelvis: CTDIvol 8.7 mGy, DLP 516 mGy*cm. Findings: Evaluation of solid organs is limited due to lack of intravenous contrast use. Lung Bases: No acute or significant lung base finding. Normal heart size. No pleural or pericardial effusion. Liver: The liver is normal in size. No focal lesions. Gallbladder and Biliary Tree: Gallbladder is surgically absent. Spleen: Unremarkable Pancreas: The pancreas is grossly normal in appearance. Adrenal Glands: Unremarkable Kidneys: 1 mm calculi in the lower pole of the left kidney without hydronephrosis. Unremarkable right kidney. Bladder: Grossly unremarkable for degree of distention. Bowel: The stomach is grossly normal in appearance. Small bowel and colon are normal in caliber and distribution. The appendix is not visualized; however, no secondary findings of acute appendicitis identified. Scattered fat stranding is seen in the right upper quadrant which may reflect mild focal infectious / inflammatory process. Ascites: Absent Lymphadenopathy: No mesenteric, retroperitoneal or periportal lymphadenopathy. Abdominal Wall and Mesentery: Unremarkable. Vasculature: The visualized abdominal aorta is normal in size and caliber. Evaluation of abdominal and pelvic vessels is limited due to lack of intravenous contrast. Pelvic Organs: IUD in place Musculoskeletal: No aggressive focal bony lesions, acute fractures or dislocation. IMPRESSION: 1. Scattered fat stranding is seen in the right upper quadrant which may reflect mild focal infectious / inflammatory process. No abscess identified. 2. 1 mm calculi in the lower pole of the left kidney without hydronephrosis. 3. Otherwise, no abnormal findings identified. Radiation optimization: All CT scans at this facility use at least one of these dose optimization techniques: automated exposure control mA and/or kV adjustment per patient size (includes targeted exams where dose is matched to clinical indication) or iterative reconstruction. ATED BY: JEREMIAH PARHAM MD DICTATED DATE/TIME: 03/16/24 1032 . INDICATION: ABDOMINAL PAIN TECHNIQUE: Multiple real-time sonographic images of the abdomen were obtained. COMPARISON: CT dated 03-16-24 FINDINGS: The liver is heterogenous in echogenicity. The liver measures 16cm. No intrahepatic biliary ductal dilatation is noted. Gallbladder surigcally removed . The common duct measures 0.7 cm and is unremarkable. No pericholecystic fluid is noted. The right kidney measures 10cm. No hydronephrosis. The pancreas is not well visualized due to obscuration from bowel gas. The visualized portions of the IVC and aorta are grossly unremarkable. IMPRESSION: Hepatic steatosis ATED BY: MAYTE PHILLIPS MD DICTATED DATE/TIME: 03/17/24 0355 INDICATION: Abdominal pain renal stone to rule out. TECHNIQUE: Multiple real-time sonographic images of the kidneys and urinary bladder were obtained. COMPARISON: CT scan of the abdomen pelvis performed on 03/17/2024. FINDINGS: The right kidney measures 9.3 cm in length. The right renal echotexture, contour and cortical thickness are within normal limits. No hydronephrosis. Nonobstructing stone in the lower pole measuring 4 mm. The left kidney measures 11.9 cm in length. The left renal echotexture, contour, and cortical thickness are within normal limits. No hydronephrosis . Nonobstructing stone in the lower pole measuring 5 mm. No echogenic intraluminal masses are seen in the bladder. No urinary bladder wall abnormality. Bilateral ureteral jets are visualized Prevoid residual measures 147 cc. IMPRESSION: 1. Bilateral nonobstructing nephrolithiasis measuring 4 mm in the lower pole of the right kidney and 5 mm in the lower pole of the left kidney. ATED BY: COREY PACE MD DICTATED DATE/TIME: 03/17/24 0804 TRANSABDOMINAL AND ENDOVAGINAL PELVIC ULTRASOUND CLINICAL HISTORY: PELVIC PATHALOGY PID TECHNIQUE: Multiple transabdominal and endovaginal grayscale sonographic images of the pelvis were obtained. Comparison: [Comparison] FINDINGS: Uterus measures 8.1 x 4.6 x 4.0 cm. The uterine myometrium demonstrates fairly homogeneous echotexture. There is no evidence of a discrete mass or fibroid. Endometrial stripe measures 4 mm. An IUD is seen appropriately positioned in the uterine cavity. Right ovary measures 3.4 x 1.4 x 2.6 cm and the left measures 5.9 x 2.9 x 4.2 cm. There are several ple simple appearing left ovarian cysts measuring up to 3.1 cm. The right ovary appears within normal limits. There is no evidence of an adnexal mass. There is no free fluid in the cul-de-sac. IMPRESSION: 1. Several simple appearing left ovarian cysts measuring up to 3.1 cm. 2. An IUD is seen appropriately positioned within the uterine cavity. HS:Y ATED BY: NADEEM BABCOCK MD DICTATED DATE/TIME: 03/17/24 1059 Condition at Discharge: Good Final Diagnosis/Problems List #Probable acute gastroenteritis #Ruled out hepatitis #Ruled out pelvic inflammatory disease #Transaminitis # Multiple left ovarian cysts Discharge Disposition: Home SNF Discharge Will this Physician continue t: No Discharge Instruct/Medications Diet: See Comment Diet comment: Hepatic Activity: No Restrictions, As Tolerated Follow Up/Referral: PCP OBGYN Medications: Per EMR Discharge Statement: "Patient was advised to return to the ER or call 911 if any headaches, dizziness, shortness of breath, chest pain, abdominal pain, bleeding, fevers, or worsening of medical condition. Patient was counseled about treatment plan, medications, possible side effects, patientverbalized understanding. All questions were answered to the best of my ability. This discharge took greater then 30 minutes in planning, reviewing documentation, counseling the patient, and discussing with other team members." ASSESSMENT ASSESSMENT Assessment Gastroenteritis Date of Service: Mar 19, 2024 Billing Provider: CIELO DE LEÓN MD Common Visit Codes: 07228-QFK/OBS DISCH DAY >30min DEVYN CARR Mar 19, 2024 12:28 CIELO DE LEÓN MD Mar 19, 2024 21:59
== END 2024-03-19 15:30 | disposition home or self-care (01) | DRG 248 ==
LOC: ER 21:55 → OVERFLOW 03-17 00:17 → WEST WING 03-17 18:19
PROVIDERS: ADMIT Student in an Organized Health Care Education/Training Program; ATTEND Emergency Medicine
DX: A04.9 Bacterial intestinal infection, unspecified (principal); K76.0 Fatty (change of) liver, not elsewhere classified; A08.4 Viral intestinal infection, unspecified; E55.9 Vitamin D deficiency, unspecified; N83.202 Unspecified ovarian cyst, left side; R74.01 Elevation of levels of liver transaminase levels; N20.0 Calculus of kidney; E66.9 Obesity, unspecified; Z90.49 Acquired absence of other specified parts of digestive tract; Z82.49 Family history of ischemic heart disease and other diseases of the circulatory system; Z83.3 Family history of diabetes mellitus; Z68.29 Body mass index [BMI] 29.0-29.9, adult; Z97.5 Presence of (intrauterine) contraceptive device
CPT/HCPCS: 36415; 74176; 76705; 76775; 76830; 76856; 80053; 80074; 80307; 80320; 81001; 82150; 82306; 82607; 83036; 83605; 83690; 84436; 84443; 84480; 84702; 85025; 85379; 86592; 86703; G0378; J2405; J2470; J3490